=== PATIENT | female | born 1950 | race African-American/Black ===

== ENCOUNTER 2018-01-06 06:02 | Day surgery (SDC) | payer MEDICARE ==
[2018-01-05 15:32] LABS: Absolute Lymphocytes (CBC) 2.2 K/uL (0.7-4.9); Absolute Monocytes 0.4 K/uL (0.1-1.3); Absolute Neutrophil 4.1 K/uL (1.8-8.0); Basophils % 1.1 % (0-1.3); Eosinophils % 1.8 % (0-4.4); Hematocrit 40.9 % (36.0-45.0); Lymphocytes % 31.6 % (15.3-44.8); MCV 88.6 fL (80-100); MPV 9.3 fL (7.6-11.3); Monocytes % 5.3 % (3.3-12.3); RBC Red Blood Cell Count 4.62 M/uL (3.86-4.86)
[2018-01-05 15:54] LABS: Albumin 3.9 g/dL (3.4-5.0); Bilirubin Total 0.3 mg/dL (0.2-1.0); Potassium 3.4 mmol/L (3.5-5.1); Protein, Total 7.5 g/dL (6.4-8.2)
--- OUTSIDE RECORDS SUMMARY | 2018-01-06 06:07 | XMS REPORT | Clinical Summary ---
:1950 Author Organization [facility] Address [address] [place] [address] Care Team Providers Name Role Phone Norman Araya MD Primary Care Provider Allergies Not on File Medications Not on file Active Problems Not on file Encounters Date Type Specialty Care Team Description 07/07/2017 Hospital Encounter Noah Madsen MD Spinal stenosis, lumbar region with neurogenic claudication 07/07/2017 Hospital Encounter Noah Madsen MD Spinal stenosis, lumbar region with neurogenic claudication 06/26/2017 Transcribe Orders Access Noah Caba MD Spinal stenosis, lumbar region with neurogenic claudication (Primary Dx) after 01/05/2017 Social History Tobacco Use Types Packs/Day Years Used Date Never Assessed Sex Assigned at Date Recorded Not on file Job Start Date Occupation Industry Not on file Not on file Not on file Travel History Travel Start Travel End No recent travel history available. Last Filed Vital Signs Not on file Plan of Treatment Health Maintenance Due Date Last Done Comments BREAST CANCER SCREENING 2001 COLON CANCER SCREENING 2001 SHINGRIX VACCINE (1 of 2) 2001 ZOSTER VACCINE 2011 PNEUMOCOCCAL POLYSACCHARIDE VACCINE AGE 65 AND OVER 02/18/2016 PNEUMOCOCCAL-13 02/18/2016 INFLUENZA VACCINE 09/23/2017 Procedures Procedure Name Priority Date/Time Associated Diagnosis Comments MRI LUMBAR SPINE WO Routine 07/07/2017 1:32 Spinal stenosis, Results for this CONTRAST PM CDT lumbar region with procedure are in neurogenic the results claudication section. X RAYS NO CHARGE STAT 07/07/2017 12:51 Spinal stenosis, Results for this MRI PM CDT lumbar region with procedure are in neurogenic the results claudication section. after 01/05/2017 Results MRI Lumbar Spine Wo Contrast (07/07/2017 1:32 PM CDT) Narrative Performed At EXAMINATION: MRI LUMBAR SPINE WO CONTRAST [facility] CLINICAL HISTORY: M48.062 Spinal stenosislumbar region with neurogenic claudication, SPINAL STENOSISLUMBAR REGION WITH NEUROGENIC CLAUDICATION COMPARISON:None TECHNIQUE: Multiplanar multisequence noncontrast enhanced examination was performed of the Lumbar spine. FINDINGS: There is increased lumbosacral angulation and lower lumbar lordosis. There are degenerative changes in the upper sacroiliac joints. There is decreased T2 signal intensity in the lumbar discs. L5-S1: There is 4.5 mm grade 1 anterolisthesis with severe posterior and less anterior disc space narrowing.There is inward concavity of the endplates more prominent in the posterior inferior L5 lev el. There are facet hypertrophic changes. There is no spondylolysis definitely seen although this can be better evaluated with a CT exam if indicated. There is congenital narrowing of the subarachnoid space. There is bulge indenting the anterior epidural fat without definite mass effect on the S1 nerve roots. There are facet and ligamentum flavum hypertrophic changes indenting the posterior lateral epidural fat. There is mild narrowing of the AP dimension of the canal and severe foramen stenosis. Ther e is extraforaminal spondylosis extending into the nerves, greater on the left. L4-5: There is severe right and posterior disc space narrowing with surrounding endplate degenerative changes, greater on the right and signal suggesting some vacuum density in the right and central dis c. There is dorsal spondylosis with a central and right greater than left paracentral protrusion with extruded fragment extending above the level of the disc space in the right paracentral region. There are facet and ligamentum flavum hypertrophic coombs ges and epidural fat with severe narrowing of the subarachnoid space. There is severe right foramen stenosis with protrusion and extruded fragment filling the right foramen. There is right extraforaminal spondylosis and/or protrusion extending into the nerve with outward displacement. There is moderate left foramen stenosis. L3-4: There is greater posterior disc space narrowing. There is mild bulge and facet hypertrophic changes. There is mild congenital foramen stenosis. L2-3: There is mild posterior disc space narrowing. There are mild degenerative changes and congenital foramen narrowing. L1-2: There are mild degenerative changes and mild congenital inferior foramen narrowing. There is a tiny protrusion just to the right of midline. The distal cord ends at the upper L2 level and is grossly unremarkable. The study was not performed for good evaluation of soft tissue structures in the abdomen and pelvis. IMPRESSION: Grade 1 anterolisthesis with facet hypertrophic changes and severe foramen stenosis at L5-S1 and extraforaminal spondylosis extending into the nerves. Large right paracentral foramen and extraforaminal L4-5 protrusion with extruded fragment extending above the level of the disc space in the paracentral and foraminal regions. There is severe foramen st enosis and mass effect on the nerve in the right extraforaminal region. There is severe narrowing of the subarachnoid space at this level from bulge and shallow protrusion along with prominent epidural fat. [facility]-[id number] Procedure Note Hm Interface, Radiology Results Incoming - 07/07/2017 3:45 PM CDT EXAMINATION: MRI LUMBAR SPINE WO CONTRAST CLINICAL HISTORY: M48.062 Spinal stenosis lumbar region with neurogenic claudication, SPINAL STENOSIS LUMBAR REGION WITH NEUROGENIC CLAUDICATION COMPARISON: None TECHNIQUE: Multiplanar multisequence noncontrast enhanced examination was performed of the Lumbar spine. FINDINGS: There is increased lumbosacral angulation and lower lumbar lordosis. There are degenerative changes in the upper sacroiliac joints. There is decreased T2 signal intensity in the lumbar discs. L5-S1: There is 4.5 mm grade 1 anterolisthesis with severe posterior and less anterior disc space narrowing. There is inward concavity of the endplates more prominent in the posterior inferior L5 level. There are facet hypertrophic changes. There is no spondylolysis definitely seen although this can be better evaluated with a CT exam if indicated. There is congenital narrowing of the subarachnoid space. There is bulge indenting the anterior epidural fat without definite mass effect on the S1 nerve roots. There are facet and ligamentum flavum hypertrophic changes indenting the posterior lateral epidural fat. There is mild narrowing of the AP dimension of the canal and severe foramen stenosis. There is extraforaminal spondylosis extending into the nerves, greater on the left. L4-5: There is severe right and posterior disc space narrowing with surrounding endplate degenerative changes, greater on the right and signal suggesting some vacuum density in the right and central disc. There is dorsal spondylosis with a central and right greater than left paracentral protrusion with extruded fragment extending above the level of the disc space in the right paracentral region. There are facet and ligamentum flavum hypertrophic changes and epidural fat with severe narrowing of the subarachnoid space. There is severe right foramen stenosis with protrusion and extruded fragment filling the right foramen. There is right extraforaminal spondylosis and/or protrusion extending into the nerve with outward displacement. There is moderate left foramen stenosis. L3-4: There is greater posterior disc space narrowing. There is mild bulge and facet hypertrophic changes. There is mild congenital foramen stenosis. L2-3: There is mild posterior disc space narrowing. There are mild degenerative changes and congenital foramen narrowing. L1-2: There are mild degenerative changes and mild congenital inferior foramen narrowing. There is a tiny protrusion just to the right of midline. The distal cord ends at the upper L2 level and is grossly unremarkable. The study was not performed for good evaluation of soft tissue structures in the abdomen and pelvis. IMPRESSION: Grade 1 anterolisthesis with facet hypertrophic changes and severe foramen stenosis at L5-S1 and extraforaminal spondylosis extending into the nerves. Large right paracentral foramen and extraforaminal L4-5 protrusion with extruded fragment extending above the level of the disc space in the paracentral and foraminal regions. There is severe foramen stenosis and mass effect on the nerve in the right extraforaminal region. There is severe narrowing of the subarachnoid space at this level from bulge and shallow protrusion along with prominent epidural fat. [id number] Performing Organization Address City/[facility]/Zipcode Phone Number [facility] [address] [place] [address] XR Rays No Charge MRI (07/07/2017 12:51 PM CDT) Narrative Performed At EXAMINATION:X RAYS NO CHARGE [facility] CLINICAL H[facility]:M48.062 Spinal stenosis COMPARISON:None available at this time. IMPRESSION: Bilateral orbital plate fixation plates and screws. Earrings and dental artifact are also partially imaged. No other radiopacity. Procedure Note Interface, Radiology Results Incoming - 07/07/2017 1:35 PM CDT EXAMINATION: X RAYS NO CHARGE MRI CLINICAL HISTORY: M48.062 Spinal stenosis COMPARISON: None available at this time. IMPRESSION: Bilateral orbital plate fixation plates and screws. Earrings and dental artifact are also partially imaged. No other radiopacity. Performing Organization Address City/[facility]/Zipcode Phone Number [facility] [address] [place] [address] after 01/05/2017 Insurance Payer Benefit Plan / Group Subscriber ID Type Phone Address [facility] CHOICE/CHOICE + xxxxxxxxx HMO/PPO [facility] MEDICARE AARP MEDICARE COMPLETE MCR xxxxxxxxx HMO Advance Directives Patient has advance care planning documents on file. For more information, please contact:Eric Muhammad[address] [place] [address]
[2018-01-06] MEDS ORDERED: Ringers Lactate 1,000 ML IV ONE (06:57)
[2018-01-06] MEDS ORDERED: PROPOFOL 200 MG/20 ML VIAL IV ONE (07:07)
[2018-01-06] MEDS ORDERED: GLYCOPYRROLATE 0.2 MG/ML SYR ONE (07:08)
[2018-01-06] MEDS ORDERED: MIDAZOLAM HCL 2 MG/2 ML INJ ONE (07:09)
[2018-01-06] MEDS ORDERED: LIDOCAINE 1% MPF 2 ML AMPULE ONE (07:09)
[2018-01-06] MEDS ORDERED: FENTANYL CITR 250 MCG/5 ML ONE (07:09)
[2018-01-06] MEDS ORDERED: ROCURONIUM 50 MG/5 ML VIAL IV ONE (07:09)
[2018-01-06] MEDS ORDERED: NEOSTIGMINE 1 MG/ML -5 ML SYRINGE ONE (07:09)
[2018-01-06] MEDS ORDERED: ONDANSETRON HCL 40 MG/20 ML VIAL ONE (07:09)
[2018-01-06] MEDS ORDERED: NA CHLORIDE 0.9% 500 ML ONE (07:30)
--- NOTE | 2018-01-06 07:39 | P.HP ---
Date of Service: 01/06/18 PC: This is a 67-year-old female presents for repair of an incarcerated umbilical hernia. HPC: Patient has had a bulge in her umbilicus for the last few years. Has grown in size. He we are increasing pain and discomfort particularly when she tries to bend over, or lifts something. 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 PMH: Hypertension PSHx: Paste SOC: Allergic to Naprosyn medication list was reviewed SYS REVIEW: No cough, wheeze, shortness of breath. No chest pain or palpitations. Good exercise tolerance. O/E awake alert vital signs are stable HEENT: Not jaundiced Chest: Air movement equal bilaterally ABD: Abdomen is soft, no guarding or rebound. Has umbilical hernia is incarcerated LOCO: Intact DATA: Within normal limits IMPRESSION: Incarcerated umbilical hernia PLAN: This patient is incarcerated umbilical hernia. I will take her to the operating room for laparoscopic possible open procedure. The risks of this procedure have been discussed. The possibility of bleeding, infection, injury to bowel, blood vessels, and surrounding structures was explained. She understands and wants us to proceed. SYS REVIEW: O/E HEENT: Chest: ABD: LOCO: DATA: IMPRESSION: PLAN:
[2018-01-06] MEDS ORDERED: CEFAZOLIN SODIUM 1 GM/VIAL ONE (08:02)
[2018-01-06] MEDS ORDERED: DEXAMETHASONE 10 MG/ML VIAL ONE (08:04)
[2018-01-06] MEDS ORDERED: ONDANSETRON 4 MG/2 ML VIAL IV PRN (08:57)
[2018-01-06] MEDS ORDERED: MORPHINE 4 MG/ML SYR IV PRN (08:57)
[2018-01-06] MEDS: MEPERIDINE HCL 50 MG/ML AMP ONE ×6 (09:02→09:37)
--- NOTE | 2018-01-06 09:04 | P.OP ---
Preoperative diagnosis: Incarcerated umbilical hernia Postoperative diagnosis: The same Primary procedure: Laparoscopic reduction repair of incarcerated umbilical hernia with mesh Anesthesia: General Estimated blood loss: Less than 10 cc Specimen: No specimen was sent Operative Technique: The patient brought the operating room placed supine on the table general endotracheal anesthesia, the area of the abdomen was prepped with a DuraPrep solution, and she was draped in usual aseptic manner. A left upper quadrant skin incision was made. This brought down through the skin and subcutaneous tissue. The Visiport was then used to enter peritoneal cavity and created pneumoperitoneum to approximately 12 mm of mercury. Under direct vision a 5 mm trocar was placed along the left lower quadrant. Attention was now directed towards the umbilicus. We could see there is as large incarcerated hernia in this area. It was reduced back into the peritoneal cavity. The contents were mostly omentum. It showed no signs of vascular compromise. At this point a piece of circular mesh measuring 40 0.5 inches was introduced into the peritoneal cavity. It had been marked pre insertion to help with his orientation on the entry abdominal wall. The Pro Tacker was now taken ran the mesh was lifted up to the anterior abdominal wall. It was fixed in place securely. At this point the rest the abdomen is inspected to ensure adequate hemostasis. The facile defect was now closed in the left upper quadrant with a Endo Close an absorbable suture. At this point the pneumoperitoneum was collapsed, the suture tied, and tiny applied to the skin. At the end of procedure she was in a stable condition when sent to the recovery room. Needle sponge instrument count were correct. No drains were placed. Implants: Circular mesh, 4.5 Transferred to: Recovery Room Condition: Good
[2018-01-06] MEDS: Ringers Lactate 1,000 ML IV SCH ×2 (10:18→17:53)
[2018-01-06] MEDS: HYDROCODONE/APAP 7.5/325 MG TAB PO PRN ×2 (13:33→20:30)
[2018-01-06 16:03] LABS: Urine Appearance CLEAR; Urine Bilirubin NEGATIVE (NEG); Urine Blood TRACE (NEG); Urine Color YELLOW; Urine Glucose NEGATIVE (NEG); Urine Protein NEGATIVE (NEG); Urine Specific Gravity 1.015 (1.005-1.030); Urine Urobilinogen 0.2 mg/dL (0.2-1.0); Urine pH 6.5 (5.0-7.0)
[2018-01-06 16:25] LABS: Urine Microscopic Reflex ORDER UMIC
[2018-01-06 16:26] LABS: Urine Bacteria NONE SEEN /HPF (<20); Urine Culture Reflex Order NOT NEEDED; Urine RBC <5 /HPF (NONE SEEN)
[2018-01-07] MEDS: HYDROCODONE/APAP 7.5/325 MG TAB PO PRN ×2 (03:50→17:51)
[2018-01-07] MEDS: Ringers Lactate 1,000 ML IV SCH ×2 (03:51→14:09)
== END 2018-01-07 20:58 | disposition home or self-care (01) ==
LOC: OR 06:02 → 2ND 08:59 → OR 01-07 20:58
PROVIDERS: ATTEND Surgery
PROC: 0WUF4JZ Supplement Abdominal Wall with Synthetic Substitute, Percutaneous Endoscopic Approach (ICD-10-PCS; principal; 2018-01-06 07:30)
DX: K42.0 Umbilical hernia with obstruction, without gangrene (principal); I10 Essential (primary) hypertension; E05.90 Thyrotoxicosis, unspecified without thyrotoxic crisis or storm; F17.200 Nicotine dependence, unspecified, uncomplicated
CPT/HCPCS: 36415; 49653; 80053; 85025; C1781; J0690; J1100; J2001; J2175 ×2; J2250; J2405; J2704; J2710; J3010; 81003; 81015